=== PATIENT | female | born 2000 | race Caucasian/White ===

== ENCOUNTER 2022-06-23 19:46 | Emergency (ER) | payer BC, SELFPAY ==
[2022-06-23 19:49] VITALS: BP 132/88; PULSE 115; RESP 13; TEMP 36.6; O2SAT 100; BMI 28.1
--- NOTE | 2022-06-23 20:06 | CT_ITS ---
INDICATION: seizure, head trauma EXAMINATION: CT BRAIN - CT Head or Brain W/O Contrast Injection TECHNIQUE: Multiple axial images were obtained of the head without intravenous contrast. A radiation dose optimization technique was used for this scan. IV Contrast dosage and agent: None. COMPARISON: None. FINDINGS: BRAIN PARENCHYMA: No intra- or extra-axial hemorrhage. No intracranial mass or mass effect. Sweet/white matter differentiation is maintained and there is no blurring of the basal ganglia. There is no hyperdense vessel. Posterior fossa structures are unremarkable. CSF SPACES: Appropriate for age. No hydrocephalus. Basal cisterns are patent. CALVARIUM, SKULL BASE, PARANASAL SINUSES AND MASTOID AIR CELLS: Scalp contusion left parietal vertex region with soft tissue gas consistent with laceration. No underlying fracture with intact calvarium and skull base. Paranasal sinuses are clear. Mastoid air cells and middle ears are clear. ORBITS: Both globes, extraocular muscles, optic nerves and retrobulbar fat appear unremarkable. ASPECTS Score for Acute Strokes: 10 CT/Brain/Head without Contrast IMPRESSION: No acute intracranial pathology. Left parietal vertex region scalp contusion and laceration. No underlying fracture. Electronically Signed: Jaron Hollins DO at 20:39 EDT ,
[2022-06-23 20:09] LABS: Absolute Lymphocyte Count 3.17 X10^3/uL (0.83-4.51); Basophil# 0.03 X10^3/uL; Basophil% 0.4 % (0-1); Eosinophils% 1.5 % (0-5); Hematocrit 42.9 % (37-47); Hemoglobin 13.8 g/dL (12.0-15.0); Lymphocyte # 3.17 X10^3/ul (0.83-4.51); Lymphocyte % 47.1 % (19-41); Mean Corp Hgb Conc 32.2 g/dL (32-36); Mean Corpuscular Hgb 27.8 pg (27.0-32.0); Mean Corpuscular Volume 86.3 fL (81-99); Mean Platelet Vol. 9.7 fl (6.2-12.0); Monocyte# 0.47 X10^3/uL; NRBC Flagged by Analyzer 0 % (0-5); Neutrophil # 2.95 X10^3/uL (2.7-7.7); Neutrophil % 43.9 % (47-70); Platelet Count 285 K/mm3 (150-450); RBC Distribution Width CV 11.7 % (11.6-14.6); RBC Distribution Width SD 36.7 fl (35.1-43.9); Red Blood Count 4.97 M/mm3 (4.2-5.4); White Blood Count 6.7 K/mm3 (4.4-11.0)
--- NOTE | 2022-06-23 20:09 | EDS_ITS ---
HPI <TIGIST Tamayo - Last Filed: 06/23/22 21:04> History of Present Illness Chief Complaint: Seizure Narrative Narrative: Patient presenting today after having a syncopal episode at work. She states that she was on her break and started to feel lightheaded and her vision became cloudy and she felt like she could pass out. Next thing she knew she was on the floor and a bystander said that she had seizure-like activity for 30 seconds. She has no other information regarding the event. Does not have any history of seizures but states that there was a time about a month ago where she woke up with bruises on her arms and bite kramer on her tongue, she never got evaluated after this. Patient did hit her head during this event and has a laceration to the back of her scalp. She denies having any chronic health conditions and does not use any blood thinners. She denies any chest pain, shortness of breath, abdominal pain, nausea, and vomiting. PFSH <TIGIST Tamayo Last Filed: 06/23/22 21:04> [facility] Medical History no medical history Home Medications potassium chloride 10 mEq tablet,extended release 20 meq PO DAILY hypokalemia 7 days #14 tabs 06/23/22 [Rx Last Taken Unknown] Allergy/AdvReac Type Severity Reaction Status Date / Time No Known Allergies Allergy Verified 06/23/22 19:52 Social History Smoking Status: Never smoker ROS <TIGIST Tamayo - Last Filed: 06/23/22 21:04> ROS ED Constitutional Constitutional ED: Denies chills, fever(s) or sweats Eyes Eyes: Denies blurry vision or diplopia Cardiovascular Cardiovascular: Denies chest pain or palpitations Respiratory/Chest Respiratory/Chest: Denies cough or dyspnea Gastrointestinal Gastrointestinal: Denies abdominal pain, nausea or vomiting Musculoskeletal Musculoskeletal: Denies arthralgias, back pain, myalgias or neck pain Integumentary Reports laceration and other Neurologic Neurologic: Denies confusion, dizziness or paresthesias Psychiatric Psychiatric: Denies anxiety, depression, suicidal ideation or suicidal thoughts EXAM <TIGIST Tamayo Last Filed: 06/23/22 21:04> Physical Exam Const Vital Signs: 06/23/22 19:49 Temperature 97.8 F Temperature Source Temporal Pulse Rate 115 H Respiratory Rate 13 Blood Pressure 132/88 H Blood Pressure Mean 102 Pulse Ox 100 Oxygen Delivery Method Room Air Positive well nourished, well developed and no apparent distress General Appearance ED: well developed HEENT Reports normocephalic and head/scalp atraumatic Mouth ED: Yes moist mucous membranes normal Eyes PERRL and EOMs intact bilaterally Neck full ROM and supple Chest Wall inspection of chest normal Resp normal respiratory effort and clear to auscultation bilaterally Cardio regular rate and regular rhythm GI soft to palpation, non-tender, non-distended and no masses Back/Spine normal ROM and normal to inspection Extremity normal to inspection and full ROM Neuro oriented x3, CN's II-XII intact bilaterally, moves all extremities, no focal motor deficits and no sensory deficits noted Sensorium / Orientation: awake and alert Psych mental status grossly normal and thought process normal Skin no rashes or lesions noted and no wounds <Dr. Cleveland Montero MD - Last Filed: 06/23/22 21:31> Physical Exam Const Vital Signs: 06/23/22 19:49 Temperature 97.8 F Temperature Source Temporal Pulse Rate 115 H Respiratory Rate 13 Blood Pressure 132/88 H Blood Pressure Mean 102 Pulse Ox 100 Oxygen Delivery Method Room Air MDM <TIGIST Tamayo - Last Filed: 06/23/22 21:04> [facility] MDM Narrative Medical decision making narrative: Patient presenting today after a syncopal episode that occurred while she was at work. States that she began to feel lightheaded and thought that she could pass out the next thing she knew she was on the floor. A bystander thinks that patient may have had seizure-like activity for around 30 seconds but no further information can be provided by patient. She is well-appearing and in no acute distress. She does have a 4 cm laceration to the back of her scalp. 5 sutures were placed. Head CT obtained and shows no intracranial abnormality. CBC unremarkable without any leukocytosis or anemia, CMP shows slight hypokalemia at 2.8. Oral potassium replacement has been given. Patient is feeling nauseous, she has been given Zofran. Lab Data Attestation: I reviewed the patient's lab results. Lab results narrative: CBC unremarkable, BMP shows a potassium 2.8 Labs: Laboratory Results - last 24 hr 06/23/22 06/23/22 19:55 19:55 WBC 6.7 RBC 4.97 Hgb 13.8 Hct 42.9 MCV 86.3 MCH 27.8 MCHC 32.2 RDW Std Deviation 36.7 RDW Coeff of Tyrese 11.7 Plt Count 285 MPV 9.7 Immature Gran % (Auto) 0.100 Neut % (Auto) 43.9 L Lymph % (Auto) 47.1 H Spalding % (Auto) 7.0 Eos % (Auto) 1.5 Baso % (Auto) 0.4 Absolute Neuts (auto) 3.0 Absolute Lymphs (auto) 3.17 Nucleated RBC % 0 Sodium 139 Potassium 2.8 L Chloride 107 Carbon Dioxide 23.0 Anion Gap 9 BUN 17 Creatinine 0.77 Estim Creat Clear Calc 97.21 Est GFR (MDRD) Af Amer 123 Est GFR (MDRD) Non-Af 102 BUN/Creatinine Ratio 22.1 H Glucose 91 Calcium 9.1 Radiography Diagnostic Testing: Clinical Impression(s) from Imaging Studies Brain CT 06/23/22 20:06 IMPRESSION: No acute intracranial pathology. Left parietal vertex region scalp contusion and laceration. No underlying fracture. Electronically Signed: Jaron Hollins DO at 20:39 EDT , CT also reviewed and interpreted by attending ED physician <Dr. Cleveland Montero MD - Last Filed: 06/23/22 21:31> [facility] MDM Narrative Medical decision making narrative: Patient presenting today after a syncopal episode that occurred while she was at work. States that she began to feel lightheaded and thought that she could pass out the next thing she knew she was on the floor. A bystander thinks that sury nt may have had seizure-like activity for around 30 seconds but no further information can be provided by patient. She is well-appearing and in no acute distress. She does have a 4 cm laceration to the back of her scalp. 5 sutures were placed. Head CT obtained and shows no intracranial abnormality. CBC unremarkable without any leukocytosis or anemia, CMP shows slight hypokalemia at 2.8. Oral potassium replacement has been given. Patient is feeling nauseous, she has been given Zofran. I have personally performed a face to face assessment of the patient and have reviewed the KAITLYNN Note. I performed a substantive portion of the visit including all aspects of the following. My diaz findings include: History is [21-year-old female no seen past medical history. Was at work today when she either had a syncopal event fell and hit her head or possibly a seizure and then fell and hit her head. Scalp laceration. No other complaints. No seizure history. No recent severe headaches. Family is with her but they were not at work and did not witness what occurred. Patient denies recent illness.] Exam is [well-appearing 21-year-old female. Vital signs stable afebrile. H EENT exam pupils round reactive light. She has a 2 inch laceration left posterior scalp. That will need repaired. Mild blood. No Sinay hematoma. Neck nontender. Back and spine nontender. Trachea midline. Lungs clear to auscultation. Heart regular rhythm no murmur. Rate about 100. Chest wall nontender. Ribs nontender. Abdomen soft nontender. No peritoneal signs. Soft. Pelvic girdle intact. Moving all 4 extremities. 5/5 911 telecommunicator strength. Dorsi plantarflexion intact. Neurologic exam normal. NIH is 0. GCS of 15. Awake alert. Answering questions following commands. Normal motor strength and sensation. Fingertip to nose within normal limits. No drift.] Medical Decision Making [21-year-old syncopal episode versus possible seizure. CAT scan labs are unremarkable other than mild hypokalemia at 2.8. She will be given oral potassium. We suture repaired her scalp laceration. Her tetanus is already up-to-date. Lengthy discussion with patient and mom and family at bedside. She will need further evaluation and outpatient EEG. Her driving restricted at this time till we get further evaluation. Stitches out in 10 days.] Other additions or changes: [None] History & Record Review Discussion w/independent historian: Patient and Family Additional record(s) reviewed:: No prior records Lab Data Lab results narrative: CBC unremarkable, BMP shows a potassium 2.8 CAT scan was unremarkable. Labs: Laboratory Results - last 24 hr 06/23/22 06/23/22 19:55 19:55 WBC 6.7 RBC 4.97 Hgb 13.8 Hct 42.9 MCV 86.3 MCH 27.8 MCHC 32.2 RDW Std Deviation 36.7 RDW Coeff of Tyrese 11.7 Plt Count 285 MPV 9.7 Immature Gran % (Auto) 0.100 Neut % (Auto) 43.9 L Lymph % (Auto) 47.1 H Spalding % (Auto) 7.0 Eos % (Auto) 1.5 Baso % (Auto) 0.4 Absolute Neuts (auto) 3.0 Absolute Lymphs (auto) 3.17 Nucleated RBC % 0 Sodium 139 Potassium 2.8 L Chloride 107 Carbon Dioxide 23.0 Anion Gap 9 BUN 17 Creatinine 0.77 Estim Creat Clear Calc 97.21 Est GFR (MDRD) Af Amer 123 Est GFR (MDRD) Non-Af 102 BUN/Creatinine Ratio 22.1 H Glucose 91 Calcium 9.1 Radiography Diagnostic Testing: Clinical Impression(s) from Imaging Studies Brain CT 06/23/22 20:06 IMPRESSION: No acute intracranial pathology. Left parietal vertex region scalp contusion and laceration. No underlying fracture. Electronically Signed: Jaron Hollins DO at 20:39 EDT , Rhythm Strip Rhythm Strip: Sinus Rhythm Rate: 95 Ectopy: None EKG Initial EKG: Attestation: I personally reviewed and interpreted this EKG as follows: Interpretation: Sinus Rhythm and No Acute Injury Pattern Comments: Normal sinus rhythm rate of 95 no acute signs of AR, ischemia or dysrhythmia. Procedures <TIGIST Tamayo - Last Filed: 06/23/22 21:04> Lacerations Laceration: Length: 1.57 in Depth: Sub Q Shape: Linear Prep: Chlorhexadine Laceration repair: Foreign material removed, Irrigated and Lidocaine Irrigated (ml): 30 Number of Sutures/[place]: 5 Suture Information: Ethilon (4-0) Discharge Plan Triage Chief Complaint: Seizure ED Midlevel Provider: Maribel Tinsley ED Provider: Cleveland Montero Dx/Rx/DC Orders Clinical Impression: Syncope, Laceration of scalp, Head injury, Acute hypokalemia Instructions: ED Head Injury (Adult), ED Hypokalemia, ED Fainting, Uncertain Cause Prescriptions: New potassium chloride 10 mEq tablet extended release 20 meq PO DAILY 7 Days Qty: 14 0RF Primary Care Provider: Aba Fernandes Referrals: Aba Fernandes MD [Primary Care Provider] - As soon as possible Activity Restrictions/Additional Instructions: We are unsure tonight if you passed out due to a seizure or for some other reason. Your CAT scan and labs were unremarkable other than mild low potassium which probably had nothing to do with what happened. You will need to follow-up your primary care physician and get an EEG to be evaluated for possible seizure activity. No driving until you are cleared to do so. You had 1 to 2 inch laceration on top of your scalp. Those stitches will need to come out in 10 days. Clean daily with soap and water peroxide and water. Tylenol for pain. Any further passing out or seizure-like activity you will need to be evaluated at that time. Disposition Disposition: Home, Self Care
[2022-06-23 20:29] LABS: Anion Gap 9 (5-15); BUN 17 mg/dL (7-18); BUN/Creat Ratio 22.1 RATIO (10-20); Calcium,Total 9.1 mg/dL (8.5-10.1); Chloride 107 mmol/L (98-107); Creatinine, Serum 0.77 mg/dL (0.55-1.02); EST Glomerular Filtration Rate 102 mL/min (>60); Est Glom Filt Rate - Afr Amer 123 mL/min (>60); Estimated Creatinine Clearance 97.21 ml/min; Glucose 91 mg/dL (74-106); Potassium 2.8 mmol/L (3.5-5.1); Sodium Level 139 mmol/L (136-145)
[2022-06-23] MEDS: Ondansetron 4 MG/2 ML Vial IV (20:41)
[2022-06-23] MEDS: Lidocaine 1% (20 ml mdv) 20 ML Vial 10 ML INFILT (20:42)
--- NOTE | 2022-06-23 21:00 | EKG12_ITS ---
Test Reason : SEIZURE Blood Pressure : / mmHG Vent. Rate : 095 BPM Atrial Rate : 095 BPM P-R Int : 148 ms QRS Dur : 070 ms QT Int : 352 ms P-R-T Axes : 030 057 039 degrees QTc Int : 442 ms Normal sinus rhythm Normal ECG Confirmed by CJ GOVEA, GRACE ([id number]), food editor ABHIJIT GRIFFITH ([id number]) on 06/25/2022 1:33:07 PM Referred By: Confirmed By:GRACE CORONA MD
[2022-06-23] MEDS: Potassium Chloride Oral Tablet 20 MEQ 40 MEQ PO (21:31)
[2022-06-23 21:43] VITALS: BP 135/78; PULSE 92; RESP 16; O2SAT 98
== END 2022-06-23 21:45 | disposition home or self-care (01) ==
PROVIDERS: Physician Assistant; Emergency Provider Emergency Medicine; PCP Pediatrics; Visit Provider Emergency Medicine
DX: S01.01XA Laceration without foreign body of scalp, initial encounter (principal); R56.9 Unspecified convulsions; E87.6 Hypokalemia; R55 Syncope and collapse; W19.XXXA Unspecified fall, initial encounter
CPT/HCPCS: 12001; 70450; 80048; 85025; 93005; 96374; 99285; A4216; J2405